=== PATIENT | male | born 1990 | race Caucasian/White ===

== ENCOUNTER 2018-07-03 09:48 | Emergency (ER) | payer OTHER ==
[~2018-07-03] VITALS: Ht 167.6 cm; Wt 76.2 kg
[~2018-07-03 09:48] MED LIST: TRAMADOL HCL50 MG PO
[2018-07-03] MEDS ORDERED: LIPO-FLAVONOID1 EACH PO (10:12)
[2018-07-03] MEDS ORDERED: DICLOFENAC POTA50 MG PO (14:14)
[2018-07-03] MEDS ORDERED: BIO-IMMUNEX CA500 MG PO (14:14)
[2018-07-03] MEDS ORDERED: MEDROLPACK PO (14:14)
== END 2018-07-03 14:56 | disposition home or self-care (01) ==
LOC: ER 09:48
DX: R53.1 Weakness (principal)